=== PATIENT | male | born 1990 | race African-American/Black ===

== ENCOUNTER 2020-10-26 11:57 | Outpatient (CLI) | payer OTHER | END 2020-10-26 11:58 | disposition home or self-care (01) | LOC: CSHWCC 11:57 | PROVIDERS: ATTEND Nurse Practitioner Family | DX: S21.202D Unspecified open wound of left back wall of thorax without penetration into thoracic cavity, subsequent encounter (principal); S31.000D Unspecified open wound of lower back and pelvis without penetration into retroperitoneum, subsequent encounter; E66.3 Overweight; G89.11 Acute pain due to trauma; W32.0XXD Accidental handgun discharge, subsequent encounter | CPT/HCPCS: 97605; 99203; G0463 ==

== ENCOUNTER 2020-10-31 15:33 | Outpatient (CLI) | payer OTHER | END 2020-10-31 15:34 | disposition home or self-care (01) | LOC: CSHWCC 15:33 | PROVIDERS: ATTEND Nurse Practitioner Family | DX: S31.000D Unspecified open wound of lower back and pelvis without penetration into retroperitoneum, subsequent encounter (principal); S21.202D Unspecified open wound of left back wall of thorax without penetration into thoracic cavity, subsequent encounter; G89.11 Acute pain due to trauma; E66.3 Overweight; W32.0XXD Accidental handgun discharge, subsequent encounter | CPT/HCPCS: 99212; G0463 ==

== ENCOUNTER 2020-11-03 09:07 | Outpatient (CLI) | payer OTHER | END 2020-11-03 09:08 | disposition home or self-care (01) | LOC: CSHWCC 09:07 | PROVIDERS: ATTEND Nurse Practitioner Family | DX: S21.202D Unspecified open wound of left back wall of thorax without penetration into thoracic cavity, subsequent encounter (principal); S31.000D Unspecified open wound of lower back and pelvis without penetration into retroperitoneum, subsequent encounter; G89.11 Acute pain due to trauma; E66.3 Overweight; W32.0XXD Accidental handgun discharge, subsequent encounter ==

== ENCOUNTER 2020-11-17 09:15 | Outpatient (CLI) | payer OTHER | END 2020-11-17 09:16 | disposition home or self-care (01) | LOC: CSHWCC 09:15 | PROVIDERS: ATTEND Nurse Practitioner Family | DX: S21.202D Unspecified open wound of left back wall of thorax without penetration into thoracic cavity, subsequent encounter (principal); S31.000D Unspecified open wound of lower back and pelvis without penetration into retroperitoneum, subsequent encounter; G89.11 Acute pain due to trauma; E66.3 Overweight; W32.0XXD Accidental handgun discharge, subsequent encounter | CPT/HCPCS: 99212; G0463 ==

== ENCOUNTER 2022-08-28 17:15 | Emergency (ER) | payer OTHER, SELFPAY ==
[2022-08-28] MEDS ORDERED: Cyclobenzaprine 10 MG TAB ONE (19:56)
[2022-08-28] MEDS ORDERED: Ibuprofen 200 MG TAB ONE (19:57)
== END 2022-08-28 20:00 | disposition home or self-care (01) ==
LOC: CSHERS 17:15
DX: M25.522 Pain in left elbow (principal); V43.52XA Car driver injured in collision with other type car in traffic accident, initial encounter; Y92.410 Unspecified street and highway as the place of occurrence of the external cause